=== PATIENT | male | born 1950 | race Caucasian/White ===

== ENCOUNTER → 2017-07-13 | Outpatient (CLI) | payer OTHER ==
[~2017-07-13] MED LIST: IOPAMIDOL (ISOVUE-300) 100 ML BTL ONE
== END ==
LOC: FIMAGING 11:08
PROVIDERS: ATTEND Physical Medicine & Rehabilitation
DX: M54.6 Pain in thoracic spine (principal); R93.3 Abnormal findings on diagnostic imaging of other parts of digestive tract; S22.41XD Multiple fractures of ribs, right side, subsequent encounter for fracture with routine healing; R91.1 Solitary pulmonary nodule; K57.32 Diverticulitis of large intestine without perforation or abscess without bleeding; N20.0 Calculus of kidney; I71.4 Abdominal aortic aneurysm, without rupture
CPT/HCPCS: 74160; Q9967

== ENCOUNTER → 2018-09-09 | Outpatient (CLI) | payer OTHER ==
[~2018-09-09] MED LIST changes: +IOPAMIDOL (ISOVUE 370) 100 ML BTL IV ONE; -IOPAMIDOL (ISOVUE-300) 100 ML BTL ONE
== END ==
LOC: FIMAGING 13:12
PROVIDERS: ATTEND Internal Medicine
DX: I71.2 Thoracic aortic aneurysm, without rupture (principal)
CPT/HCPCS: 71275; Q9967; 82565-PO